=== PATIENT | male | born 1955 | race African-American/Black ===

== ENCOUNTER 2020-12-03 09:26 | Outpatient (REF) | payer MEDICARE, MEDICAID, SELFPAY ==
--- NOTE | ~2020-12-03 | MR_ITS ---
EXAMINATION: MR CERVICAL SPINE WITHOUT CONTRAST CLINICAL INFORMATION: Herniated disc. Neck pain. Bilateral hand and leg tingling. Bilateral shoulder pain. Fusion C5, C6, C7 in 2009. COMPARISON: Multiple priors, most recent cervical spine MRI dated 12/13/2017. TECHNIQUE: MRI of the cervical spine was obtained using routine sequences without contrast. FINDINGS: VERTEBRAL BODIES AND PARASPINAL SOFT TISSUES: Artifact related to anterior fusion redemonstrated at C5-C6, similar when compared to the prior examination. No adjacent marrow edema to suggest hardware complication. Immediately adjacent osseous structures are limited due to artifact. Additional artifact related to hardware at the right C5-C6 facet, unchanged. Stable widening of the atlantoaxial interval with associated fluid, unchanged. No acute fracture or subluxation. No loss of vertebral body height. Multilevel loss of intervertebral disc height with disc desiccation and endplate osteophytes. Modic type II degenerative endplate changes redemonstrated at C7-T1, similar when compared to the prior examination. Focal myelomalacia redemonstrated at the level of C5-C6, unchanged when compared to the prior examination. No additional abnormal cord signal. Otherwise, the visualized paraspinal soft tissues are grossly unremarkable. CERVICOMEDULLARY JUNCTION AND VISUALIZED POSTERIOR FOSSA: The visualized posterior fossa is unremarkable. SPINAL LEVELS: C2-C3: Redemonstration of a shallow disc osteophyte complex without significant central canal or neural foraminal stenosis unchanged. C3-C4: Redemonstration of a disc osteophyte complex, asymmetric to the left which completely effaces the ventral thecal sac and minimally indents the adjacent cord. Bilateral facet arthropathy and uncinate spurring with severe left and moderate right neural foraminal stenosis. Findings are unchanged. C4-C5: No significant disc bulge. No central canal or neural foraminal stenosis. C5-C6: Postsurgical change related to anterior stabilization hardware. No significant disc bulge. No significant central canal or neural foraminal stenosis. C6-C7: Broad-based disc osteophyte complex which partially effaces the ventral thecal sac. Bilateral uncinate spurring with moderate bilateral neural foraminal stenosis, similar when compared to the prior examination. C7-T1: Broad-based disc osteophyte complex with a superimposed left paracentral/subarticular disc protrusion which partially effaces the ventral thecal sac. Bilateral uncinate spurring with severe left and moderate right neural foraminal stenosis, unchanged. MR/MR cervical spine wo con IMPRESSION: 1. Redemonstration of anterior stabilization hardware at C5-C6 without evidence of hardware complication. Associated right facet arthropathy hardware is also noted. No significant disc bulge, central canal, or neural foraminal stenosis at this level. Focal myelomalacia is redemonstrated within the adjacent cord. 2. 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 Findings are not significantly changed. 3. Disc osteophyte complex redemonstrated at C3-C4, asymmetric to the left which completely effaces the ventral thecal sac and minimally indents the adjacent cord. Bilateral facet arthropathy and uncinate spurring causing severe left and moderate right neural foraminal stenosis, unchanged. 4. Broad-based disc osteophyte complex redemonstrated at C6-C7 which partially effaces the ventral thecal sac with bilateral uncinate spurring and moderate bilateral neural foraminal stenosis, unchanged. 5. Disc osteophyte complex at C7-T1 and superimposed left paracentral/subarticular disc protrusion partially effacing the ventral thecal sac as well as bilateral uncinate spurring causing severe left and moderate right neural foraminal stenosis. Findings are unchanged.
== END 2020-12-03 09:27 | disposition home or self-care (01) ==
LOC: HO.MRI 09:26
PROVIDERS: PCP Registered Nurse; Visit Provider Registered Nurse
DX: G89.4 Chronic pain syndrome (principal); M54.2 Cervicalgia
CPT/HCPCS: 72141